=== PATIENT | female | born 1985 | race Caucasian/White ===

== ENCOUNTER → 2021-11-19 | Outpatient (CLI) | payer BC ==
[~2021-11-19] MED LIST: COLACE 100MG C100 MG PO; PRENATAL VITAM1 EAC6 PO; ZOFRAN ODT 4 MG4 MG PO
== END ==
LOC: KOH-I 10:30
DX: M25.561 Pain in right knee (principal); M22.41 Chondromalacia patellae, right knee
CPT/HCPCS: 73721